=== PATIENT | female | born 1985 | race Caucasian/White ===

== ENCOUNTER → 2020-03-26 | Outpatient (CLI) | payer BC ==
--- NOTE | 2020-03-26 10:11 | US ---
EXAMINATION TYPE: Transabdominal DATE OF EXAM: 03/26/2020 9:50 AM COMPARISON: NONE CLINICAL HISTORY: Z36 CONFIRM DATES. EXAM PERFORMED: Transabdominal (TA) EXAM MEASUREMENTS: GESTATIONAL AGE / DATING Physician Established: Not yet established Dates by LMP: (8 weeks/0 days) EDC: 11/05/2020 Dates by First Scan: No previous this is first scan Dates by Current Scan for: (8 weeks/3 days) EDC: 11/02/2020 MATERNAL ANATOMY Uterus: 12.1 x 5.4 x 6.3 cm Right Ovary: 1.5 x 1.2 x 0.9 cm Left Ovary: 3.0 x 2.5 x 1.4 cm Post CDS / Adnexa: wnl Presence of free fluid: No Presence of corpus luteal cyst: Yes, left ovary measuring 1.8 x 1.1 x 1.7 cm Presence of subchorionic bleed: Yes, small hypoechoic area visualized measuring 2.1 x 0.7 x 0.8 cm GESTATION / SURVEY CRL: 1.8 cm ( 8 weeks/3 days) Yolk Sac (normal less than 6mm): 3 mm Heart Rate: 167 bpm Rhythm: Normal IUP: Viable IUP Date of LMP: 01/30/2020 Beta HcG (if available): Not available at this time IMPRESSION: Viable IUP, measurements consistent with dates
== END | disposition home or self-care (01) ==
LOC: RADUSWWP 09:33
PROVIDERS: ATTEND Obstetrics & Gynecology
DX: Z36.9 Encounter for antenatal screening, unspecified (principal); Z3A.08 8 weeks gestation of pregnancy
CPT/HCPCS: 76801

== ENCOUNTER 2020-10-28 18:38 | Outpatient (CLI) | payer BC ==
[2020-10-28 20:33] VITALS: BP 112/77; PULSE 16; RESP 16; TEMP 97.1
--- NOTE | 2020-11-12 02:27 | P.MSEPDOC ---
Presenting Problems - Arrival Data Date of Arrival on Unit: 10/28/20 Time of Arrival on Unit: 18:38 Mode of Transport: Ambulatory - Complaint OB-Reason for Admission/Chief Complaint: Possible Onset of Labor Medical History - Information : 2 Para: 1 Term: 1 : 0 Abortions: Spontaneous or Elective: 0 Number of Living Children: 1 - Gestational Age Gestational Age by JOHANNA (wks/days): 38 Weeks and 6 Days - History Complications: Prior Review of Systems - Review of Systems Constitutional: No problems Breast: No problems ENT: No problems Cardiovascular: No problems Respiratory: No problems Gastrointestinal: No problems Genitourinary: No problems Musculoskeletal: No problems Neurological: No problems Skin: No problems Vital Signs - Temperature Temperature: 97.1 F Temperature Source: Temporal Artery Scan - Pulse Right Brachial Pulse Rate: 16 Pulse Assessment Method: Automatic Cuff - Respirations Respiratory Rate: 16 Oxygen Delivery Method: Room Air O2 Sat by Pulse Oximetry: 98 - Blood Pressure Right Arm Blood Pressure: 112/77 Blood Pressure Mean: 88 Blood Pressure Source: Automatic Cuff Medical Screen Scoring (Pre) - Cervical Exam Dilation: 1-3 cm = 1 Membranes: Intact - Uterine Contractions Frequency: > 5 minutes apart = 1 Duration: N/A Intensity: N/A - Maternal Vital Signs Maternal Temperature: N/A Maternal Blood Pressure: N/A Signs of Preeclampsia: N/A Maternal Respirations: N/A - Maternal Trauma Maternal Trauma: N/A - Assessment - Baby A Baseline FHR: 125 Heart Rate - NICHD Category: Category I (Normal) = 0 NST: Reactive - Total Score - Baby A Total Score - Baby A: 2 - Total Score - Baby B Total Score - Baby B: 2 - Total Score - Baby C Total Score - Baby C: 2 - Level of Risk - Baby A Level of Risk - Baby A: Low (0-5) - Level of Risk - Baby B Level of Risk - Baby B: Low (0-5) - Level of Risk - Baby C Level of Risk - Baby C: Low (0-5) Physician Notification (Pre) - Physician Notified Physician Notified Date: 10/28/20 Physician Notified Time: 20:10 New Order Received: Yes - Notification Comment Comment: Dr. Dumont given report on pt. Pt c/o. VS. WNL. Reactive NST. Amnisure negative. Vag exam of. /60/high with no change after 1 hr. Orders recieved. to d/c pt to home. Pt sched. for R C/S on 11/03. Disposition - Disposition OB Disposition: Discharge to home Discharge Date: 10/28/20 Discharge Time: 20:20 I agree with the RN Medical Screening Exam: Yes Case reviewed; plan agreed upon as documented in EMR&OBIX.: Yes Diagnosis: FALSE LABOR AT OR AFTER 37 COMPLETED WEEKS OF GESTATION
== END 2020-10-28 20:20 | disposition home or self-care (01) ==
LOC: FBPOP 18:38
PROVIDERS: ATTEND Obstetrics & Gynecology
DX: O47.1 False labor at or after 37 completed weeks of gestation (principal); Z3A.38 38 weeks gestation of pregnancy
CPT/HCPCS: 59025; 84112; 99213

== ENCOUNTER 2020-10-30 09:04 | Inpatient (IN) | payer BC ==
[2020-10-30] MEDS: LACTATED RINGERS 1,000 ML IV SCH ×3 (10:30→18:37)
[2020-10-30] MEDS ORDERED: CITRIC ACID-SODIUM CITRATE 15 ML CUP PO ONE (10:32)
[2020-10-30 11:04] LABS: Basophils % (A) 0 %; Eosinophils # (A) 0.1 k/uL (0-0.7); Eosinophils % (A) 1 %; HCT 35.3 % (34.0-46.0); HGB 12.8 gm/dL (11.4-16.0); Lymphocytes # (A) 1.5 k/uL (1.0-4.8); Lymphocytes % (A) 25 %; MCH 33.4 pg (25.0-35.0); MCHC 36.2 g/dL (31.0-37.0); MCV 92.3 fL (80.0-100.0); Mean Platelet Volume 9.2; Monocytes # (A) 0.2 k/uL (0-1.0); Monocytes % (A) 4 %; Neutrophils # (A) 4.2 k/uL (1.3-7.7); Neutrophils % (A) 69 %; Platelet Count 158 k/uL (150-450); RBC 3.82 m/uL (3.80-5.40); RDW 13.1 % (11.5-15.5); WBC 6.1 k/uL (3.8-10.6)
[2020-10-30] MEDS ORDERED: ONDANSETRON 4 MG/2 ML VIAL ONE (12:12)
[2020-10-30] MEDS ORDERED: NALBUPHINE 10 MG/ML (1 ML AMP) ONE (12:12)
[2020-10-30] MEDS ORDERED: PHENYLEPHRINE-0.9% NACL SYG 1,000 MCG/10 ML SYRINGE ONE (12:12)
[2020-10-30] MEDS ORDERED: KETOROLAC 15 MG/ML 1 ML VIAL ONE (12:12)
[2020-10-30] MEDS ORDERED: MORPHINE SULFATE (PF) 0.3 MG/0.3 ML SYR ONE (12:12)
--- NOTE | 2020-10-30 12:23 | P.HPOB ---
History of Present Illness H&P Date: 10/30/20 Chief Complaint: Spontaneous rupture of membranes This is a 35-year-old female 2 para 1 at 39 and one sevenths weeks with an estimated date of confinement of 11/05/2020, who presents to labor and delivery with complaints of spontaneous rupture membranes with clear fluid noted at 7:30 AM today. She has felt irregular contractions since that time. care has been with Dr. Crespo and has been uncomplicated per patient. She was scheduled for a repeat section with tubal ligation on Tuesday. labs: RPR-nonreactive Hepatitis B surface antigen-negative Rubella-immune Blood type-O- Antibody screen-negative Hemoglobin-14 Random glucose-88 GC/minus/Trichomonas-negative Obstetrical ultrasound-normal anatomy One hour Glucola-111 Group B streptococcus-negative Obstetrical history: . History of 1 section at term due to failure to progress. Social history: She is . She works full-time at the bank. Review of Systems Constitutional: Denies chills, Denies fever Eyes: denies blurred vision, denies pain Ears, nose, mouth and throat: Denies headache, Denies sore throat Cardiovascular: Denies chest pain, Denies shortness of breath Respiratory: Denies cough Gastrointestinal: Reports abdominal pain (Irregular contractions) Genitourinary: Reports pelvic pain, Reports Musculoskeletal: Reports low back pain Integumentary: Denies pruritus, Denies rash Neurological: Denies numbness, Denies weakness Psychiatric: Denies anxiety, Denies depression Past Medical History Past Medical History: Thyroid Disorder History of Any Multi-Drug Resistant Organisms: None Reported Past Surgical History: Section Past Anesthesia/Blood Transfusion Reactions: No Reported Reaction Past Psychological History: No Psychological Hx Reported Smoking Status: Never smoker Past Alcohol Use History: None Reported Past Drug Use History: None Reported - Past Family History Mother Family Medical History: No Reported History Medications and Allergies Home Medications Medication Instructions Recorded Confirmed Type Ergocalciferol (Vitamin D2) 1,250 mcg PO ARREOLA 10/28/20 10/30/20 History [Vitamin D2 (50,000 Iu)] Levothyroxine Sodium [Tirosint] 150 mcg PO QAM 10/28/20 10/30/20 History Pnv,Calcium 72/Iron/Folic Acid 1 each PO QAM 10/28/20 10/30/20 History [ Plus Tablet] Allergies Allergy/AdvReac Type Severity Reaction Status Date / Time No Known Allergies Allergy Verified 10/30/20 09:25 Exam Osteopathic Statement: *. No significant issues noted on an osteopathic structural exam other than those noted in the History and Physical/Consult. Vital Signs Temp Pulse Resp BP Pulse Ox 10/30/20 09:29 97.2 F L 95 15 118/75 97 Intake and Output 10/29/20 10/30/20 10/30/20 22:59 06:59 14:59 Other: Weight 82.554 kg HEENT: Within normal limits Heart: Regular rate and rhythm Lungs: Clear to auscultation bilaterally Abdomen: Cervix: 1 cm/50%/-2 station. Positive amnisure with clear fluid noted. heart tones: Category 1 Contractions: Irregular approximately every 5-7 minutes Extremities: Negative Homans Results Result Diagrams: 10/30/20 10:35 Assessment and Plan (1) 39 weeks gestation of Current Visit: Yes Status: Acute Code(s): Z3A.39 - 39 WEEKS GESTATION OF SNOMED Code(s): 80416500 (2) Previous delivery affecting Current Visit: Yes Status: Acute Code(s): O34.219 - MATERNAL CARE FOR UNSP TYPE SCAR FROM PREVIOUS DEL SNOMED Code(s): 612985292 (3) Family planning Current Visit: Yes Status: Acute Code(s): Z30.09 - ENCOUNTER FOR OTH GENERAL CNSL AND ADVICE ON CONTRACEPTION SNOMED Code(s): 649111828 Plan: Proceed with repeat low transverse section with bilateral partial salpingectomy. I have discussed the risks, benefits, and alternative therapies for the above- mentioned procedure and for both sedation/anesthesia as well as necessary blood products administration, if indicated, as they pertain to this patient. The patient has indicated her understanding and acceptance of the risks and proced ures discussed.
--- NOTE | 2020-10-30 13:09 | P.OP ---
Date of Procedure: 10/30/20 Preoperative Diagnosis: 1. Intrauterine at 39 and one sevenths weeks. 2. Previous section. 3. Family-planning. 4. Spontaneous rupture of membranes. Postoperative Diagnosis: Same Procedure(s) Performed: Repeat low transverse section with bilateral partial salpingectomy Anesthesia: spinal (Duramorph) Surgeon: Mary Jacob Veterinary Anatomist #1: Leon Dumont Estimated Blood Loss (ml): 340 Pathology: other (Portions of right and left fallopian tubes) Condition: stable Disposition: floor Indications for Procedure: This is a 35-year-old female 2 para 1 at 39 and one sevenths weeks who presented with spontaneous rupture of membranes this morning. She was previously scheduled for a repeat section with bilateral subject me for family planning. She still wishes to proceed with the above procedure. I have discussed the risks, benefits, and alternative therapies for the above- mentioned procedure and for both sedation/anesthesia as well as necessary blood products administration, if indicated, as they pertain to this patient. The patient has indicated her understanding and acceptance of the risks and procedures discussed. Operative Findings: A viable male infant is noted in the vertex presentation with scores of 9 at 1 minute and 9 at 5 minutes and infant weight of 7 lbs. 13 oz. Normal uterus tubes and ovaries are noted. Description of Procedure: The patient is taken to the operating room where she is placed in the dorsal supine position with leftward tilt after spinal Duramorph anesthesia is given. She is prepped and draped in the normal sterile fashion. Skin was tested and found to be adequately anesthetized. A Pfannenstiel skin incision was made with a scalpel through the previous laparotomy scar. A second knife was used to ca rry the incision down to the underlying layer of fascia. The fascia was nicked in the midline with a scalpel and then extended laterally bilaterally with Michele scissors. The anterior lip of the fascia was grasped with 2 Luana clamps and then dissected off the underlying rectus muscle in the midline with Michele scissors. The inferior aspect of the fascial incision was grasped with 2 Luana clamps and dissected off the underlying rectus muscle and the midline with Michele scissors. Next the peritoneum layer was tented up with 2 hemostats and then entered sharply with the scalpel. The incision is extended superiorly and inferiorly with Metzenbaum scissors. Next a DeLee retractor is placed. The vesicouterine peritoneum is entered sharply with Metzenbaum scissors and extended laterally bilaterally with Metzenbaum scissors and then the bladder flap is pushed inferiorly. The lower uterine segment is incised in transverse fashion with the scalpel and then bluntly entered with a hemostat. Clear fluid is noted. The incision was then extended laterally bilaterally with 2 fingers. Next the 's head is delivered through the incision. Nose and mouth are bulb suctioned. The remainder of the is easily delivered and placed on mother's abdomen. Cord is clamped and cut. is taken to warmer by nursing staff. Uterine fundus is gently massaged and placenta is delivered m anually. Uterus is exteriorized and cleared of all clots and debris. Uterine incision is closed with 0 Vicryl suture in a running locked fashion. A second layer of 0 Vicryl suture is used in a running fashion for hemostasis. Once adequate hemostasis as assured, the vesicouterine peritoneum is reapproximated with 2-0 Vicryl suture in a running fashion. Next attention is turned to the tubes. The right fallopian tube is grasped in the midportion with a hemostat. The mesosalpinx is entered with Bovie cautery. 0 Vicryl suture is tied 2 times around both the proximal and distal portion of the fallopian tube. The knuckle of tube is then removed with Metzenbaum scissors. The ends of the tube were then cauterized with Bovie cautery. The same procedure is carried out on the left fallopian tube. There is a slight adhesion from the tube to the round ligament on this side. Posterior cul-de-sac is suctioned of all clots and debris. Uterus is returned to the abdomen. Incision is noted to be hemostatic. The left fallopian tube site was noted to be oozing and therefore several interrupted stitches are placed on this side for hemostasis. Once the stitches are placed good hemostasis is noted. Peritoneal layer is closed with 0 Vicryl suture in a running fashion. Muscle layer is reapproximated with 0 Vicryl suture in interrupted fashion. One interrupted stitches placed on a bleeding area on the left mid rectus muscle. Good hemostasis is noted. Fascia layer is then closed with 0 PDS suture with 2 sutures meeting in the midline and the knots buried in either side and in the midline. The subcutaneous tissue was then closed with 2-0 Vicryl suture. Skin layer was then closed with joao. All sponge and needle counts are correct. The patient is taken to recovery room in stable condition.
[2020-10-30] MEDS ORDERED: METOCLOPRAMIDE 5 MG/ML 2 ML VIAL IVP PRN (13:18)
[2020-10-30] MEDS ORDERED: OXYTOCIN 30 UNITS/500 ML NS 30 UNIT in SALINE 1 500ML.BAG IV SCH (13:18)
[2020-10-30] MEDS ORDERED: LANOLIN CREAM 5 GM TUBE TOPICAL PRN (13:18)
[2020-10-30] MEDS ORDERED: NALOXONE 0.4 MG/ML 1 ML VIAL IV PRN (13:18)
[2020-10-30] MEDS ORDERED: HYDROmorphone 1 MG/ML 1 ML SYRINGE IVP PRN (13:18)
[2020-10-30] MEDS ORDERED: SIMETHICONE 80 MG CHEWABLE PO PRN (13:18)
[2020-10-30] MEDS ORDERED: ONDANSETRON 4 MG/2 ML VIAL IVP PRN (13:18)
[2020-10-30] MEDS ORDERED: diphenhydrAMINE 50 MG/ML 1 ML VIAL IVP PRN (13:18)
[2020-10-30] MEDS ORDERED: diphenhydrAMINE 50 MG CAP PO PRN (13:18)
[2020-10-30] MEDS ORDERED: diphenhydrAMINE 25 MG CAP PO PRN (13:18)
[2020-10-30] MEDS ORDERED: HYDROmorphone 0.2 MG/1 ML SYRINGE IVP PRN (13:18)
[2020-10-30] MEDS ORDERED: ZOLPIDEM 5 MG TAB PO PRN (13:18)
[2020-10-30] MEDS: KETOROLAC 15 MG/ML 1 ML VIAL IVP PRN (18:34)
[2020-10-30] MEDS: diphenhydrAMINE 50 MG/ML 1 ML VIAL IVP PRN (18:44)
[2020-10-30] MEDS: IBUPROFEN 600 MG TAB PO SCH (19:48)
[2020-10-30] MEDS: SENNOSIDES-DOCUSATE SODIUM 1 EACH TAB PO SCH (19:58)
[2020-10-31] MEDS: KETOROLAC 15 MG/ML 1 ML VIAL IVP PRN ×2 (00:35→07:21)
[2020-10-31] MEDS: diphenhydrAMINE 50 MG/ML 1 ML VIAL IVP PRN (00:36)
[2020-10-31] MEDS: IBUPROFEN 600 MG TAB PO SCH ×4 (01:12→19:57)
--- NOTE | 2020-10-31 06:31 | P.PNOBGPC ---
Subjective - Subjective Principal diagnosis: Status post repeat low transverse section with T/L POD #1 Interval history: Patient is doing well. She has not used anything other than Toradol for pain. Lochia is minimal. She is passing flatus but no bowel movement yet. Patient reports: Reports appetite normal, Reports voiding normally, Reports pain well controlled, Reports ambulating normally : doing well Objective - Vital Signs Latest vital signs: Vital Signs Temp Pulse Resp BP Pulse Ox 10/31/20 04:00 97.7 F 82 16 100/73 100 10/31/20 00:00 98.4 F 86 16 106/73 99 10/30/20 20:12 97.9 F 87 16 109/70 97 10/30/20 15:18 97.5 F L 75 15 102/68 99 10/30/20 14:48 72 15 98/66 98 10/30/20 14:18 70 15 101/62 98 10/30/20 14:03 86 15 99/61 98 10/30/20 13:48 79 15 104/57 98 10/30/20 13:33 72 15 100/59 98 10/30/20 13:18 97.2 F L 79 15 96/51 96 10/30/20 09:29 97.2 F L 95 15 118/75 97 Intake and Output 10/30/20 10/30/20 10/31/20 14:59 22:59 06:59 Intake Total 1000 500 Output Total 300 600 400 Balance 700 -600 100 Intake: IV 1000 Oral 500 Output: Urine 300 600 400 Uretheral ([place]ima) 300 Other: # Voids 1 Weight 82.554 kg - Exam Extremities: Present: normal. Absent: edema Abdomen: Present: normal appearance, soft (Positive bowel sounds 4). Absent: distention, tenderness Incision: Present: normal, dry, intact Uterus: Present: normal, firm Assessment and Plan Assessment: Status post repeat low transverse section with bilateral partial salpingectomy postoperative day #1 (1) 39 weeks gestation of Current Visit: Yes Status: Acute Code(s): Z3A.39 - 39 WEEKS GESTATION OF SNOMED Code(s): 85662469 (2) Previous delivery affecting Current Visit: Yes Status: Acute Code(s): O34.219 - MATERNAL CARE FOR UNSP TYPE SCAR FROM PREVIOUS DEL SNOMED Code(s): 248015517 (3) Family planning Current Visit: Yes Status: Acute Code(s): Z30.09 - ENCOUNTER FOR OTH GENERAL CNSL AND ADVICE ON CONTRACEPTION SNOMED Code(s): 501548096 Plan: Continue with postoperative care today. Will advance diet as tolerated. We'll switch to oral pain medication today.
[2020-10-31 07:09] LABS: Basophils % (A) 0 %; Eosinophils % (A) 0 %; HCT 28.4 % (34.0-46.0); Lymphocytes # (A) 1.2 k/uL (1.0-4.8); Lymphocytes % (A) 16 %; MCH 32.7 pg (25.0-35.0); MCHC 34.8 g/dL (31.0-37.0); MCV 93.9 fL (80.0-100.0); Mean Platelet Volume 9.7; Monocytes # (A) 0.3 k/uL (0-1.0); Monocytes % (A) 4 %; Neutrophils # (A) 6.1 k/uL (1.3-7.7); Neutrophils % (A) 78 %; Platelet Count 143 k/uL (150-450); RBC 3.03 m/uL (3.80-5.40); RDW 13.9 % (11.5-15.5); WBC 7.8 k/uL (3.8-10.6)
[2020-10-31 07:10] LABS: HGB 9.9 gm/dL (11.4-16.0)
[2020-10-31] MEDS: LEVOTHYROXINE 75 MCG TAB PO SCH (07:22)
--- NOTE | 2020-10-31 08:15 | P.PN ---
Progress Note - Text Date: 10/31/2020 Time: 07:07 The patient is status post section Vital signs stable VAS: 0-10 Patient has no complaints of pain. The patient incurred some minimal itching yesterday, this itching is now subsiding. Pain meds to be managed by service.
[2020-10-31] MEDS: SENNOSIDES-DOCUSATE SODIUM 1 EACH TAB PO SCH ×2 (08:57→21:28)
[2020-10-31] MEDS ORDERED: Rhogam IMMUNE GLOBULIN 1,500 UNIT/1 ML IM ONE (12:00)
[2020-10-31 16:57] VITALS: RESP 16
[2020-10-31] MEDS: LACTATED RINGERS 1,000 ML IV SCH ×2 (21:27→21:28)
[2020-11-01] MEDS: IBUPROFEN 600 MG TAB PO SCH ×2 (02:02→08:12)
[2020-11-01] MEDS: LEVOTHYROXINE 75 MCG TAB PO SCH (06:29)
--- NOTE | 2020-11-01 08:00 | P.PNOBGPC ---
Subjective - Subjective Patient reports: Reports appetite normal, Reports voiding normally, Reports pain well controlled, Reports ambulating normally [place]: doing well Objective - Vital Signs Latest vital signs: Vital Signs Temp Pulse Resp BP Pulse Ox 11/01/20 00:00 98.0 F 88 16 109/74 10/31/20 16:00 98.5 F 93 16 102/68 97 10/31/20 12:00 88 18 92/65 10/31/20 08:00 98.7 F 87 16 99/70 97 Intake and Output 10/31/20 11/01/20 11/01/20 22:59 06:59 14:59 Other: # Voids 1 1 - Exam Lungs: bilateral: normal Chest: Normal S1, Normal S2 Extremities: Present: normal Abdomen: Present: normal appearance, soft. Absent: distention, tenderness Incision: Present: normal, dry, intact Uterus: Present: normal, firm Assessment and Plan Assessment: Post operative day #2. Patient is resting without new complaints wishes to go home. Vital signs are stable she's afebrile. Uterus is firm nontender and her incision is intact and dry. Plan today is to continue routine postoperative care and discharge home later today. (1) 39 weeks gestation of Current Visit: Yes Status: Acute Code(s): Z3A.39 - 39 WEEKS GESTATION OF SNOMED Code(s): 19809979 (2) Family planning Current Visit: Yes Status: Acute Code(s): Z30.09 - ENCOUNTER FOR OTH GENERAL CNSL AND ADVICE ON CONTRACEPTION SNOMED Code(s): 904477406 (3) Previous delivery affecting Current Visit: Yes Status: Acute Code(s): O34.219 - MATERNAL CARE FOR UNSP TYPE SCAR FROM PREVIOUS DEL SNOMED Code(s): 844143154
--- NOTE | 2020-11-01 08:10 | P.DS ---
Providers Date of admission: 10/30/20 09:27 Expected date of discharge: 11/01/20 Attending physician: Juany Crespo Primary care physician: Stated None - Discharge Diagnosis(es) (1) 39 weeks gestation of Current Visit: Yes Status: Acute (2) Family planning Current Visit: Yes Status: Acute (3) Previous delivery affecting Current Visit: Yes Status: Acute Hospital Course: Please see dictated H&P per Dr. Jacob on this patient's admission. Brief summary this is a pleasant 35-year-old 2 para 1 female 39 and one sevenths weeks gestation admitted to labor and delivery with spontaneous rupture membranes and previous section. Patient undergoes repeat section and tubal ligation. Please see dictated delivery note per Dr. Jacob. On postoperative #2 patient's felt be stable for discharge home follow up with Dr. Crespo in 1 week for an incision check. Procedures: Repeat low transverse section and bilateral partial salpingectomy. Patient Condition at Discharge: Good Plan - Discharge Summary New Discharge Prescriptions: New Ibuprofen [Motrin] 600 mg PO Q6H #30 tab oxyCODONE HCL [OxyIR] 5 mg PO Q4HR PRN #18 tab PRN Reason: Pain No Action Levothyroxine Sodium [Tirosint] 150 mcg PO QAM Ergocalciferol (Vitamin D2) [Vitamin D2 (50,000 Iu)] 1,250 mcg PO ARREOLA Pnv,Calcium 72/Iron/Folic Acid [ Plus Tablet] 1 each PO QAM Discharge Medication List Ergocalciferol (Vitamin D2) [Vitamin D2 (50,000 Iu)] 1,250 mcg PO ARREOLA 10/28/20 [History] Levothyroxine Sodium [Tirosint] 150 mcg PO QAM 10/28/20 [History] Pnv,Calcium 72/Iron/Folic Acid [ Plus Tablet] 1 each PO QAM 10/28/20 [History] Ibuprofen [Motrin] 600 mg PO Q6H #30 tab 11/01/20 [Rx] oxyCODONE HCL [OxyIR] 5 mg PO Q4HR PRN #18 tab 11/01/20 [Rx] Follow up Appointment(s)/Referral(s): Juany Crespo DO [Doctor of Osteopathic Medicine] - 11/11/20 1:45 pm (Please see Dr. Crespo on December 10 at 3:45 PM as well.) Patient Instructions/Handouts: (DC) Activity/Diet/Wound Care/Special Instructions: No heavy lifting or strenuous activity for 6 weeks. No intercourse or anything per vagina for 6 weeks. Please call if any fever, chills, excessive vaginal bleeding, and/or abdominal pain. Discharge Disposition: HOME SELF-CARE
[2020-11-01 08:38] VITALS: BP 111/70; PULSE 80; TEMP 97.8
[2020-11-01] MEDS: SENNOSIDES-DOCUSATE SODIUM 1 EACH TAB PO SCH (11:22)
== END 2020-11-01 11:32 | disposition home or self-care (01) | DRG 785 ==
LOC: FBPOP 09:04 → 4FBP 09:27
PROVIDERS: ADMIT Obstetrics & Gynecology; ATTEND Obstetrics & Gynecology
PROC: 10D00Z1 Extraction of Products of Conception, Low, Open Approach (ICD-10-PCS; principal; 2020-10-30 12:30)
PROC: 0UB70ZZ Excision of Bilateral Fallopian Tubes, Open Approach (ICD-10-PCS; principal; 2020-10-30 12:30)
PROC: 3E0234Z Introduction of Serum, Toxoid and Vaccine into Muscle, Percutaneous Approach (ICD-10-PCS; principal; 2020-10-30 12:30)
DX: O34.211 Maternal care for low transverse scar from previous cesarean delivery (principal); Z3A.39 39 weeks gestation of pregnancy; Z37.0 Single live birth; Z30.2 Encounter for sterilization; Z79.899 Other long term (current) drug therapy; O26.893 Other specified pregnancy related conditions, third trimester; Z67.41 Type O blood, Rh negative
CPT/HCPCS: 59025; 84112; 85025; 85461; 86850; 86900; 86901; 88302; 99213